=== PATIENT | male | born 1975 | race Caucasian/White ===

== ENCOUNTER → 2017-01-02 | Day surgery (SDC) | payer OTHER ==
[~2017-01-02] VITALS: Ht 185.4 cm; Wt 68.3 kg
[2017-01-02] VITALS (10 sets, daily range): BP systolic 100–136; BP diastolic 48–99; PULSE 47–75; RESP 13–17; O2SAT 98–100
[~2017-01-02] MED LIST: Bupivacaine-MPF 0.25%/EPI 30 mL Inj INFILTRATE ONE; CeFAZolin 2 Gm/50 mL D5W IV Premix IV ONE; Dexamethasone 4 mg/mL Inj IVPUSH PRN; Dexamethasone 4 mg/mL Inj ONE; EPHEDrine Sulfate 50 mg/mL Inj IVPUSH PRN; FLUT9.9S NS; HYDROmorphone 1 mg/mL Inj IVPUSH PRN; LORA10CA PO; Lactated Ringer's 1,000 ML IV ONE; Lactated Ringer's 1,000 ML IV SCH; Lactated Ringer's 500 ML IV PRN; MetoCLOpramide 5 mg/mL 2 mL Inj IVPUSH PRN; NAPR220C11 PO; Ondansetron 2 mg/mL 2 mL Inj IVPUSH PRN; Ondansetron 2 mg/mL 2 mL Inj ONE; Phenylephrine 10,000 mCg/mL Inj IVPUSH PRN; Propofol 10,000 mCg/mL 20 mL Inj ONE; Rocuronium 10 mg/mL 5 mL Inj ONE; fentaNYL-PF 50 mCg/mL 2 mL Inj ONE; oxyCODONE-Acetamin 5-325 mg Tablet PO PRN
[2017-01-02] MEDS: Lactated Ringer's 1,000 ML IV SCH ×2 (05:53→12:02)
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
[2017-01-02] MEDS: fentaNYL-PF 50 mCg/mL 2 mL Inj IVPUSH PRN ×2 (13:15→13:50)
--- NOTE | 2017-01-02 13:15 | PCM.ANEP1 ---
Post Anesthesia PACU Phase 1 Assessment Vital Signs 88, 16, 125/92, 97%, 36.4 Vital Signs Date Time Temp Pulse Resp B/P Pulse Ox O2 Delivery O2 Flow Rate FiO2 01/02/17 10:36 36.2 47 16 112/67 100 Room Air Anesthetic Administered: GA Level of Alertness: Awake, talking STUBBS's with Equal Strength: Yes Pain: Yes Pain Scale Score: 4 Nausea or Vomiting: No CV Function & Hydration Stable: Yes Airway Device: none Oxygen Delivery: Simple Mask Lungs: Clear to Auscultation Dermatome Level: Full Sensation Summary uneventful GETA PACU Phase 2 Assessment Complications: No Follow up Care: No Patient Instructions Provided: N/A Adalberto Bajwa MD Jan 02, 2017 13:15
--- NOTE | 2017-01-02 13:52 | PCM.SURGOP ---
Surgical Operative Report Date of Service: Jan 02, 2017 Pre Operative Diagnosis Left inguinal hernia Post Operative Diagnosis Indirect left internal hernia Procedure: Laparoscopic totally extraperitoneal left inguinal hernia repair with mesh Surgeon and Turbinated Bone Grinder: Surgeon: Edel Leonard MD Assistants: Antonio Schmidt PA-C. An bookkeeper assistant was necessary for driving the camera. Indication for Procedure This is a 41-year-old man who presented with a left groin bulge and associated groin pain. On examination he had a left inguinal hernia. Options were discussed with him and together a laparoscopic approach was chosen. Findings: He had an indirect left inguinal hernia. Once the peritoneal sac was reduced, he also had preperitoneal fat attached to the exterior of the sac traversing along the cord, which was reduced as well. Procedure Details The patient was brought to the operating room and placed in supine position. General anesthesia was induced. A warming blanket and SCDs were placed. A Butts catheter was placed. Antibiotics were infused. Both arms were tucked. The operative field was prepped and draped in a sterile fashion. A pause was performed to confirm the correct patient, procedure, site, and side. A transverse infraumbilical incision was made and the anterior rectus fascia was incised. An 11 mm port was placed with a blunt tip posterior to the rectus abdominis and preperitoneal insufflation commenced. A 0 degree camera was used to develop the preperitoneal space, leaving the epigastric anterior. Two additional 5 mm ports were then placed in the midline below the umbilicus. The preperitoneal space was then developed and dissected with care taken to preserve the epigastrics and to develop a landing zone for the mesh both medially and laterally. This dissection was primarily blunt and good hemostasis was achieved. The hernia sac was seen lateral to the epigastrics and the was reduced. There was no obvious incarcerated viscera from the extraperitoneal view. Attached to the exterior of the hernia sac was some preperitoneal fat, which was also reduced. Fortunato's ligament was identified and cleared off. A left piece of Bard 3DMax mesh, medium size, 3.3 x 5.4 inches, was inserted via the infraumbilical port. It was fashioned into the correct location such that the direct defect was well covered. An absorbable tacking device was then used to tack the mesh to Fortunato's ligament. The mesh was checked again for appropriate positioning and no sign of wrinkles or creases. 2 additional tacks were placed just lateral to the epigastrics. The ports were removed and the desufflated. The fascia was closed with a running 2-0 PDS stitch. Skin was closed with 4-0 Monocryl. Local anesthetic was infused at all port seats. Sterile dressings were placed. The patient was awakened from general anesthesia and taken to the postoperative care unit in good condition. Complications There were no periprocedural complications identified. Surgical Specimen Removed: No Specimen sent to Pathology: No Anesthetic Plan: GA Grafts, Implants: Implants-See Implant Record Output, Estimated Blood Loss: 2 (ml) Blood Administration during miranda: No Edel Leonard MD Jan 02, 2017 13:52
== END | disposition home or self-care (01) ==
LOC: SAS 10:00
PROVIDERS: ATTEND Surgery
DX: K40.90 Unilateral inguinal hernia, without obstruction or gangrene, not specified as recurrent (principal); Z87.891 Personal history of nicotine dependence
CPT/HCPCS: 49650; C1781; J0690; J1100; J2175; J2250; J2405; J3010; J7120